=== PATIENT | female | born 1990 | race Caucasian/White ===

== ENCOUNTER 2016-03-20 16:19 | Emergency (ER) | payer MEDICAID, OTHER ==
[~2016-03-20] VITALS: Ht 157.5 cm; Wt 54.4 kg
[~2016-03-20 16:19] MED LIST: ATIVAN1 MG ORAL; RANITIDINE HCL150 MG ORAL
[2016-03-20] MEDS ORDERED: LEXAPRO10 MG ORAL (16:34)
[2016-03-20] MEDS ORDERED: Famotidine 20 MG/ 2ML VIAL IVP ONE (16:45)
[2016-03-20] MEDS ORDERED: LORazepam Inj 2mg/ml 1ml IV ONE (17:15)
[2016-03-20 17:30] LABS: BASOPHILS % (AUTO) 1.6 % (0.0-2.0); EOSINOPHILS % (AUTO) 0.4 % (0.0-3.0); LYMPHOCYTES % (AUTO) 6.1 % (20.0-45.0); MEAN CORPUSCULAR HEMOGLOBIN 29.3 PG (27.0-31.0); MEAN CORPUSCULAR HGB CONC 33.4 G/DL (32.0-36.0); MEAN CORPUSCULAR VOLUME 88 FL (80-99); MEAN PLATELET VOLUME 8.1 FL (6.5-10.1); NEUTROPHILS % (AUTO) 83.9 % (45.0-75.0); PLATELET COUNT 164 K/UL (150-450); RED BLOOD COUNT 4.83 M/UL (4.20-5.40); RED CELL DISTRIBUTION WIDTH 11.1 % (11.6-14.8); WHITE BLOOD COUNT 6.8 K/UL (4.8-10.8)
[2016-03-20 17:38] LABS: APPEARANCE,URINE SLIGHTLY CLOUDY; KETONES,URINE 2+ (NEGATIVE); PROTEIN,URINE 1+ (NEGATIVE)
[2016-03-20 17:39] LABS: LEUKOCYTE ESTERASE ,URINE TRACE (NEGATIVE); NITRITE,URINE NEGATIVE (NEGATIVE); UROBILINOGEN,URINE NORMAL MG/DL (0.0-1.0)
[2016-03-20 17:43] LABS: ALANINE AMINOTRANSFERASE 17 U/L (3-33); ANION GAP 18 (5-15); ASPARTATE AMINO TRANSFERASE 19 U/L (5-40); CALCIUM 9.3 mg/dL (8.6-10.2); CARBON DIOXIDE 23 mEQ/L (20-30); CHLORIDE 97 mEQ/L (98-107); CREATININE 0.7 mg/dL (0.5-0.9); GLOMERULAR FILTRATION RATE > 60 mL/min (>60); HEMOLYSIS 6; LIPASE 37 U/L (< 60); POTASSIUM 3.6 mEQ/L (3.4-4.9); SODIUM 138 mEQ/L (135-145); TOTAL PROTEIN 6.9 g/dL (6.6-8.7)
[2016-03-20 17:55] LABS: SQUAMOUS EPITHELIAL CELL,UR MANY /LPF (NONE/OCC)
[2016-03-20 17:56] LABS: BACTERIA,URINE MODERATE /HPF
[2016-03-20] MEDS ORDERED: ZOFRAN4 M3 ORAL (18:10)
[2016-03-20] MEDS ORDERED: TYLENOL EXTRA500 MG ORAL (18:10)
[2016-03-20] MEDS ORDERED: ATIVAN0.5 MG ORAL (18:10)
[2016-03-20 18:23] VITALS: BP 91/58
--- NOTE | 2016-03-21 09:48 | Emergency Room Report ---
History of Present Illness General Chief Complaint: Abdominal Pain Source: Patient Present Illness [facility] The patient is a 25 yo F with a Hx of anxiety disorder presenting for 3 days of headache, N, V, F, chills, and lower abd pain. The patient was seen by her primary care physician at the beginning of the symptoms and was diagnosed with urinary tract infection and placed on macrobid.The patient has also been prescribed tamiflu for flu-like symptoms. Abdominal pain is described as a mid lower abdomen 7/10 dull ache and does not radiate.The patient states that symptoms have not improved since beginning these medications. The patient denies any sick contacts or recent travel. Allergies: Coded Allergies: No Known Allergies (Unverified , 05/02/15) Patient History Past Medical History: see triage record Pertinent Family History: none Last Menstrual Period: 03/08/2016 Reviewed Nursing Documentation: PMH: Agreed, PSxH: Agreed Nursing Documentation-PM Past Medical History: No History, Except For History Of Psychiatric Problem: Yes - Anxiety Review of Systems All Other Systems: negative except mentioned in HPI Physical Exam Vital Signs Date Time Temp Pulse Resp B/P Pulse Ox O2 Delivery O2 Flow Rate FiO2 03/20/16 16:28 99.0 120 18 120/75 99 Room Air Sp02 EP Interpretation: reviewed, normal General Appearance: alert, GCS 15, non-toxic, mild distress Head: normocephalic, atraumatic Eyes: bilateral eye PERRL, bilateral eye normal inspection ENT: hearing grossly normal, normal pharynx, no angioedema, normal voice, TMs + canals normal, uvula midline Neck: full range of motion, supple, no bony tend, supple/symm/no masses Respiratory: chest non-tender, lungs clear, normal breath sounds, no respiratory distress, no accessory muscle use, no wheezing, speaking full sentences Cardiovascular #1: regular rate, rhythm, no edema Gastrointestinal: normal bowel sounds, soft, no mass, no guarding, tenderness - suprapubic and epigastric Genitourinary: normal inspection, no CVA tenderness Musculoskeletal: back normal, gait/station normal, normal range of motion, non- tender Neurologic: alert, oriented x3, responsive, motor strength/tone normal, sensory intact, speech normal Psychiatric: judgement/insight normal, memory normal, mood/affect normal, no suicidal/homicidal ideation Skin: normal color, no rash, warm/dry, well hydrated Lymphatic: no adenopathy Medical Decision Making PA Attestation Dr. albrecht is my supervising physician. Patient management was discussed with my supervising physician Diagnostic Impression: Primary Impression: Gastroenteritis Additional Impressions: Anxiety Influenza ER Course The patient is a 25 yo F with a Hx of anxiety disorder presenting for 3 days of headache, N, V, F, chills, and lower abd pain Differential diagnosis: Influenza, gastroenteritis, anxiety disorder, appendicitis, , urinary tract infection, among others Physical exam: Afebrile but tachycardic. Mild distress HEENT exam is unremarkable. No tonsillar edema, erythema, or exudate. No cervical lymphadenopathy. Lungs are clear to auscultation bilaterally. Abdomen is soft. No guarding. There is tenderness to palpation over suprapubic and epigastric regions only. No right lower quadrant tenderness. No CVA tenderness Skin warm and dry Otherwise exam unremarkable Labs: CBC unremarkable. No leukocytosis. CMP is unremarkable. Urinalysis shows a moderate amount of bacteria with elevated leukocyte esterase. No nitrates. Negative The patient is given IV fluids, Pepcid, Zofran, and Ativan and is feeling much better. The patient will continue taking medications for influenza and urinary tract infection which her primary care physician prescribed for her. The patient will be discharged with a prescription for Ativan, Zofran, and Tylenol. Patient will follow up with primary care physician and psychiatrist. ER precautions are given Laboratory Tests Test 03/20/16 17:00 03/20/16 17:11 Urine Color Yellow Urine Appearance Slightly cloudy Urine pH 9.0 (4.5-8.0) Urine Specific [place] 1.005 (1.005-1.035) Urine Protein 1+ (NEGATIVE) H Urine Glucose (UA) Negative (NEGATIVE) Urine Ketones 2+ (NEGATIVE) H Urine Occult Blood Negative (NEGATIVE) Urine Nitrite Negative (NEGATIVE) Urine Bilirubin Negative (NEGATIVE) Urine Urobilinogen Normal MG/DL (0.0-1.0) Urine Leukocyte Esterase Trace (NEGATIVE) H Urine RBC 2-4 /HPF (0 - 2) H Urine WBC 2-4 /HPF (0 - 2) Urine Squamous Epithelial Cells Many /LPF (NONE/OCC) H Urine Bacteria Moderate /HPF (NONE) H Urine HCG, Qualitative Negative White Blood Count 6.8 K/UL (4.8-10.8) Red Blood Count 4.83 M/UL (4.20-5.40) Hemoglobin 14.2 G/DL (12.0-16.0) Hematocrit 42.5 % (37.0-47.0) Mean Corpuscular Volume 88 FL (80-99) Mean Corpuscular Hemoglobin 29.3 PG (27.0-31.0) Mean Corpuscular Hemoglobin Concent 33.4 G/DL (32.0-36.0) Red Cell Distribution Width 11.1 % (11.6-14.8) L Platelet Count 164 K/UL (150-450) Mean Platelet Volume 8.1 FL (6.5-10.1) Neutrophils (%) (Auto) 83.9 % (45.0-75.0) H Lymphocytes (%) (Auto) 6.1 % (20.0-45.0) L Monocytes (%) (Auto) 8.0 % (1.0-10.0) Eosinophils (%) (Auto) 0.4 % (0.0-3.0) Basophils (%) (Auto) 1.6 % (0.0-2.0) Sodium Level 138 mEQ/L (135-145) Potassium Level 3.6 mEQ/L (3.4-4.9) Chloride Level 97 mEQ/L (98-107) L Carbon Dioxide Level 23 mEQ/L (20-30) Anion Gap 18 (5-15) H Blood Urea Nitrogen 7 mg/dL (7-23) Creatinine 0.7 mg/dL (0.5-0.9) Estimate Glomerular Filtration Rate > 60 mL/min (>60) Glucose Level 112 mg/dL (74-106) H Calcium Level 9.3 mg/dL (8.6-10.2) Total Bilirubin 0.8 mg/dL (0.0-1.2) Aspartate Amino Transferase (AST) 19 U/L (5-40) Alanine Aminotransferase (ALT) 17 U/L (3-33) Alkaline Phosphatase 29 U/L (35-104) L Total Protein 6.9 g/dL (6.6-8.7) Albumin 4.6 g/dL (3.5-5.2) Globulin 2.3 g/dL Albumin/Globulin Ratio 2.0 (1.0-2.7) Lipase 37 U/L (< 60) Microbiology Date/Time Source Procedure Growth Status 03/20/16 18:40 Nasopharynx Influenza Types A,B Antigen ([facility]MER) - Final Complete Lab Results Impression CBC unremarkable. No leukocytosis. CMP is unremarkable. Urinalysis shows a moderate amount of bacteria with elevated leukocyte esterase. No nitrates. Negative Last Vital Signs Date Time Temp Pulse Resp B/P Pulse Ox O2 Delivery O2 Flow Rate FiO2 03/20/16 18:23 98.3 102 14 91/58 98 Room Air Status: improved Disposition: HOME, SELF-CARE Condition: Improved Scripts Lorazepam* (ATIVAN*) 0.5 Mg Tablet 0.5 MG ORAL THREE TIMES A DAY, #15 TAB Prov: KEEGAN WELCH P.A. 03/20/16 Ondansetron* (ZOFRAN*) 4 Mg Tablet 4 MG ORAL Q6H Y for Nausea & Vomiting, #20 TAB Prov: VIDALANKEEGAN P.A. 03/20/16 Acetaminophen* (TYLENOL EXTRA STRENGTH*) 500 Mg Tablet 500 MG ORAL Q8H Y for Prn Headache/Temp > 101, #30 TAB 0 Refills Prov: TERBENANKEEGAN P.A. 03/20/16 Patient Instructions: Viral Gastroenteritis, Adult Additional Instructions: I discussed my findings with the patient. All questions and concerns have been answered. Treatment and medication compliance have been addressed. I advised the patient that they need to follow up with PMD in 3-5 days. Return to ED if symptoms worsen, new symptoms arise, or if needed for any reason. Patient verbalized understanding of discharge instructions. KEEGAN WELCH Mar 21, 2016 09:48
[2016-03-24] MEDS ORDERED: CIPROFLOXACIN250 MG PO (21:30)
== END 2016-03-20 18:40 | disposition home or self-care (01) ==
LOC: EMR 17:25
DX: K52.9 Noninfective gastroenteritis and colitis, unspecified (principal); F41.9 Anxiety disorder, unspecified; J11.1 Influenza due to unidentified influenza virus with other respiratory manifestations
CPT/HCPCS: 36415; 80053; 81003; 81025; 83690; 85025; 86710; 87086; 87181; 96374; 96375; 99284; J2405; S0028

== ENCOUNTER 2016-12-04 09:07 | Emergency (ER) | payer OTHER ==
[~2016-12-04] VITALS: Ht 154.9 cm; Wt 54.4 kg
[~2016-12-04 09:07] MED LIST changes: +ATIVAN0.5 MG ORAL; +CIPROFLOXACIN250 MG PO; +LEXAPRO10 MG ORAL; +TYLENOL EXTRA500 MG ORAL; +ZOFRAN4 M3 ORAL
[2016-12-04] MEDS ORDERED: Tubing IV Cassette IV ONE (09:35)
[2016-12-04] MEDS ORDERED: PEPCID20 MG ORAL (09:44)
[2016-12-04] MEDS ORDERED: Lidocaine 2% Visc 15ml soln ORAL ONE (09:45)
[2016-12-04] MEDS ORDERED: Dicyclomine HCl 10mg/5ml oral soln ORAL ONE (09:45)
[2016-12-04] MEDS ORDERED: Mylanta II UD 30ml ORAL ONE (09:45)
--- NOTE | 2016-12-04 09:45 | Emergency Room Report ---
History of Present Illness General Chief Complaint: Dizziness Source: Patient Present Illness HPI 26-year-old female history of depression p/w dizziness nausea vomiting epigastric pain Patient stated that she was taking escitalopram for many months, stopped 2 weeks ago and she states that she felt like she did not need it, took it on an empty stomach last night, this morning woke up with nausea, dizziness, and epigastric pain. Patient states pain started gradually, localized to the epigastric area, non radiating, earning in nature, intermittent. No relieving or exacerbating factors. Patient reports nausea but no vomiting. Lightheadedness, no room spinning Denies fever, chills. Last menstrual period was November 11 Allergies: Coded Allergies: No Known Allergies (Unverified , 05/02/15) Patient History Past Medical History: see triage record Past Surgical History: none Pertinent Family History: none Last Menstrual Period: a month ago Now: No Reviewed Nursing Documentation: PMH: Agreed, PSxH: Agreed Nursing Documentation-PMH History Of Psychiatric Problem: Yes - depression Review of Systems All Other Systems: negative except mentioned in HPI Physical Exam Vital Signs Date Time Temp Pulse Resp B/P (MAP) Pulse Ox O2 Delivery O2 Flow Rate FiO2 12/04/16 09:12 97.9 116 22 100/69 99 Room Air Sp02 EP Interpretation: reviewed, normal General Appearance: normal inspection, well appearing, no apparent distress, alert, GCS 15, non-toxic Head: normocephalic, atraumatic Eyes: bilateral eye normal inspection, bilateral eye PERRL, bilateral eye EOMI ENT: normal ENT inspection, normal pharynx, normal voice, moist mucus membranes Neck: normal inspection, full range of motion, supple Respiratory: normal inspection, lungs clear, normal breath sounds, no respiratory distress, no retraction, no wheezing, speaking full sentences, chest symmetrical Cardiovascular #1: normal inspection, regular rate, rhythm, no edema, normal capillary refill Cardiovascular #2: 2+ radial (R), 2+ radial (L) Gastrointestinal: normal inspection, non tender, soft, non-distended, no guarding Musculoskeletal: normal inspection, back normal, normal range of motion, non- tender Neurologic: normal inspection, alert, oriented x3, responsive, motor strength/ tone normal, sensory intact, normal gait, speech normal Psychiatric: normal inspection, judgement/insight normal, memory normal, mood/ affect normal, no suicidal/homicidal ideation Skin: normal inspection, normal color, no rash, warm/dry, well hydrated, normal turgor Medical Decision Making Diagnostic Impression: Primary Impression: Dizziness Additional Impression: Abdominal pain ER Course 26 yo female with nausea vomiting epigastric pain Differential Diagnosis: Gastritis, gastroenteritis, UTI/pyelo At this time abdomen is soft nontender Plan: Basic labs, ua Pepcid, maalox, pain control, IVF ER course: Patient has remained stable during ED stay. Pain improved, dizziness improved Repeat abdominal exam is nontender. Tolerating PO Disposition: Patient is to be discharged to home. Prescriptions given are pepcid Patient is instructed to follow up with their primary care doctor within 5 days. Strict return precautions discussed with patient such as fever, chills, worsening/severe abdominal pain, nausea, vomiting, black or bloody stools, which may indicate severe illness. Patient verbalizes understanding and agrees with plan. Please note that this Emergency Department Report was dictated using [employer] unit director technology software, occasionally this can lead to erroneous entry secondary to interpretation by the dictation equipment EKG Diagnostic Results EP Interpretation: Yes Rate: normal Rhythm: NSR ST Segments: No acute changes ASA given to patient: no Laboratory Tests Test 12/04/16 09:35 12/04/16 09:50 White Blood Count 7.8 K/UL (4.8-10.8) Red Blood Count 4.53 M/UL (4.20-5.40) Hemoglobin 14.4 G/DL (12.0-16.0) Hematocrit 40.7 % (37.0-47.0) Mean Corpuscular Volume 90 FL (80-99) Mean Corpuscular Hemoglobin 31.7 PG (27.0-31.0) H Mean Corpuscular Hemoglobin Concent 35.4 G/DL (32.0-36.0) Red Cell Distribution Width 10.5 % (11.6-14.8) L Platelet Count 196 K/UL (150-450) Mean Platelet Volume 8.5 FL (6.5-10.1) Neutrophils (%) (Auto) 64.8 % (45.0-75.0) Lymphocytes (%) (Auto) 23.8 % (20.0-45.0) Monocytes (%) (Auto) 7.2 % (1.0-10.0) Eosinophils (%) (Auto) 3.1 % (0.0-3.0) H Basophils (%) (Auto) 1.1 % (0.0-2.0) Sodium Level 140 MMOL/L (136-145) Potassium Level 3.7 MMOL/L (3.5-5.1) Chloride Level 104 MMOL/L (98-107) Carbon Dioxide Level 26 MMOL/L (21-32) Anion Gap 10 mmol/L (5-15) Blood Urea Nitrogen 12 mg/dL (7-18) Creatinine 0.7 MG/DL (0.55-1.30) Estimate Glomerular Filtration Rate > 60 mL/min (>60) Glucose Level 95 MG/DL (74-106) Calcium Level 8.6 MG/DL (8.5-10.1) Total Bilirubin 0.4 MG/DL (0.2-1.0) Aspartate Amino Transferase (AST) 18 U/L (15-37) Alanine Aminotransferase (ALT) 30 U/L (12-78) Alkaline Phosphatase 25 U/L (46-116) L Total Protein 7.1 G/DL (6.4-8.2) Albumin 3.9 G/DL (3.4-5.0) Globulin 3.2 g/dL Albumin/Globulin Ratio 1.2 (1.0-2.7) Lipase 240 U/L (73-393) Urine Color Yellow Urine Appearance Clear Urine pH 8 (4.5-8.0) Urine Specific [place] 1.010 (1.005-1.035) Urine Protein Negative (NEGATIVE) Urine Glucose (UA) Negative (NEGATIVE) Urine Ketones Negative (NEGATIVE) Urine Occult Blood Negative (NEGATIVE) Urine Nitrite Negative (NEGATIVE) Urine Bilirubin Negative (NEGATIVE) Urine Urobilinogen Normal MG/DL (0.0-1.0) Urine Leukocyte Esterase 2+ (NEGATIVE) H Urine RBC 0-2 /HPF (0 - 2) Urine WBC 2-4 /HPF (0 - 2) Urine Squamous Epithelial Cells Moderate /LPF (NONE/OCC) H Urine Bacteria Few /HPF (NONE) Urine HCG, Qualitative Negative Last Vital Signs Date Time Temp Pulse Resp B/P (MAP) Pulse Ox O2 Delivery O2 Flow Rate FiO2 12/04/16 09:12 97.9 116 22 100/69 99 Room Air Disposition: HOME, SELF-CARE Condition: Improved Scripts Famotidine (PEPCID) 20 Mg Tablet 20 MG ORAL BEDTIME for 7 Days, #7 TAB 0 Refills Prov: Robbi Carbajal M.D. 12/04/16 Referrals: NOT CHOSEN [facility],REFERRING (PCP) Patient Instructions: Abdominal Pain, Adult, Dizziness Robbi Carbajal M.D. Dec 04, 2016 09:45
[2016-12-04 10:00] VITALS: BP 95/66
[2016-12-04 10:01] LABS: BASOPHILS % (AUTO) 1.1 % (0.0-2.0); EOSINOPHILS % (AUTO) 3.1 % (0.0-3.0); LYMPHOCYTES % (AUTO) 23.8 % (20.0-45.0); MEAN CORPUSCULAR HEMOGLOBIN 31.7 PG (27.0-31.0); MEAN CORPUSCULAR HGB CONC 35.4 G/DL (32.0-36.0); MEAN CORPUSCULAR VOLUME 90 FL (80-99); MEAN PLATELET VOLUME 8.5 FL (6.5-10.1); MONOCYTES % (AUTO) 7.2 % (1.0-10.0); NEUTROPHILS % (AUTO) 64.8 % (45.0-75.0); PLATELET COUNT 196 K/UL (150-450); RED BLOOD COUNT 4.53 M/UL (4.20-5.40); RED CELL DISTRIBUTION WIDTH 10.5 % (11.6-14.8); WHITE BLOOD COUNT 7.8 K/UL (4.8-10.8)
[2016-12-04 10:12] LABS: APPEARANCE,URINE CLEAR; KETONES,URINE NEGATIVE (NEGATIVE); LEUKOCYTE ESTERASE ,URINE 2+ (NEGATIVE); NITRITE,URINE NEGATIVE (NEGATIVE); PH,URINE 8 (4.5-8.0); PROTEIN,URINE NEGATIVE (NEGATIVE); UROBILINOGEN,URINE NORMAL MG/DL (0.0-1.0)
[2016-12-04 10:13] LABS: ALANINE AMINOTRANSFERASE 30 U/L (12-78); ALBUMIN/GLOBULIN RATIO 1.2 (1.0-2.7); ANION GAP 10 mmol/L (5-15); ASPARTATE AMINO TRANSFERASE 18 U/L (15-37); CALCIUM 8.6 MG/DL (8.5-10.1); CARBON DIOXIDE 26 MMOL/L (21-32); CHLORIDE 104 MMOL/L (98-107); CREATININE 0.7 MG/DL (0.55-1.30); GLOMERULAR FILTRATION RATE > 60 mL/min (>60); LIPASE 240 U/L (73-393); POTASSIUM 3.7 MMOL/L (3.5-5.1); SODIUM 140 MMOL/L (136-145); TOTAL PROTEIN 7.1 G/DL (6.4-8.2)
[2016-12-04 10:26] LABS: BACTERIA,URINE FEW /HPF; RBC,URINE 0-2 /HPF (0 - 2); SQUAMOUS EPITHELIAL CELL,UR MODERATE /LPF (NONE/OCC)
[2016-12-04 11:06] VITALS: BP 93/57
--- NOTE | 2016-12-06 15:24 | Cardiology Report ---
APPROVED REPORT EKG Measurement Heart [id number] Sinus rhythm with premature atrial complexes Otherwise normal ECG
== END 2016-12-04 11:12 | disposition home or self-care (01) ==
LOC: EMR 09:31
DX: R42 Dizziness and giddiness (principal); R11.2 Nausea with vomiting, unspecified; F32.9 Major depressive disorder, single episode, unspecified; R10.13 Epigastric pain
CPT/HCPCS: 36415; 80053; 81003; 81025; 83690; 85025; 93005; 96361; 96374; 96375; 99284; J2405; S0028

== ENCOUNTER 2017-06-01 13:34 | Emergency (ER) | payer MEDICAID, OTHER ==
[~2017-06-01] VITALS: Ht 154.9 cm; Wt 52.2 kg
[~2017-06-01 13:34] MED LIST changes: +PEPCID20 MG ORAL
[2017-06-01] MEDS ORDERED: Morphine Sulfate 4mg/ml Inj IVP ONE (14:15)
[2017-06-01] MEDS ORDERED: LORazepam Inj 2mg/ml 1ml IV ONE (14:15)
[2017-06-01 14:21] VITALS: BP 102/75
[2017-06-01 14:27] LABS: HEMATOCRIT 45.6 % (37.0-47.0); HEMOGLOBIN 15.3 G/DL (12.0-16.0); MEAN CORPUSCULAR VOLUME 88 FL (80-99); PLATELET COUNT 207 K/UL (150-450); RED BLOOD COUNT 5.17 M/UL (4.20-5.40); RED CELL DISTRIBUTION WIDTH 10.7 % (11.6-14.8); WHITE BLOOD COUNT 9.3 K/UL (4.8-10.8)
[2017-06-01 14:39] LABS: APPEARANCE,URINE CLEAR; BILIRUBIN, URINE NEGATIVE (NEGATIVE); COLOR,URINE PALE YELLOW; GLUCOSE, URINE (UA) NEGATIVE (NEGATIVE); KETONES,URINE 3+ (NEGATIVE); LEUKOCYTE ESTERASE ,URINE NEGATIVE (NEGATIVE); NITRITE,URINE NEGATIVE (NEGATIVE); PH,URINE 6.5 (4.5-8.0); PROTEIN,URINE NEGATIVE (NEGATIVE); UROBILINOGEN,URINE NORMAL MG/DL (0.0-1.0)
[2017-06-01 14:49] LABS: ANION GAP 9 mmol/L (5-15); BLOOD UREA NITROGEN 11 mg/dL (7-18); CARBON DIOXIDE 25 MMOL/L (21-32); CHLORIDE 103 MMOL/L (98-107); CREATININE 0.7 MG/DL (0.55-1.30); SODIUM 137 MMOL/L (136-145)
[2017-06-01 14:59] LABS: ALANINE AMINOTRANSFERASE 11 U/L (12-78); ALBUMIN 4.1 G/DL (3.4-5.0); ALBUMIN/GLOBULIN RATIO 1.2 (1.0-2.7); ALKALINE PHOSPHATASE 37 U/L (46-116); ASPARTATE AMINO TRANSFERASE 14 U/L (15-37); BILIRUBIN,TOTAL 1.1 MG/DL (0.2-1.0)
[2017-06-01 15:00] LABS: BILIRUBIN,DIRECT 0.2 MG/DL (0.0-0.3)
[2017-06-01] MEDS ORDERED: ZOFRAN ODT4 MG ORAL ×2 (15:15→15:49)
[2017-06-01] MEDS ORDERED: RANITIDINE HCL150 MG ORAL ×2 (15:15→15:49)
[2017-06-01] MEDS ORDERED: ATIVAN0.5 MG ORAL ×2 (15:15→15:49)
[2017-06-01] MEDS ORDERED: DICYCLOMINE HCL10 MG PO ×2 (15:33→15:49)
[2017-06-01 15:57] VITALS: BP 100/77
--- NOTE | 2017-06-01 15:59 | Emergency Room Report ---
History of Present Illness General Chief Complaint: General Complaint Source: Patient Present Illness HPI 26-year-old female presents ED for evaluation. Patient presenting complaining of abdominal pain with nausea vomiting and dizziness. Started 3 days ago. History of gastritis. States she's taking her prescribed medications without relief. Pain is sharp, epigastric, 8 out of 10. Feels dizzy. Denies chest pain or shortness of breath. Also feeling very anxious. History of anxiety and takes Ativan at home. Denies alcohol or drug use. No other aggravating relieving factors. Denies any other associated symptoms Allergies: Coded Allergies: No Known Allergies (Unverified , 05/02/15) Patient History Past Medical History: GERD, psych hx Past Surgical History: none Pertinent Family History: none Social History: Denies: smoking, alcohol use, drug use Now: No Immunizations: UTD Reviewed Nursing Documentation: PMH: Agreed; PSxH: Agreed Nursing Documentation-PMH Past Medical History: No Stated History Review of Systems All Other Systems: negative except mentioned in HPI Physical Exam Vital Signs Date Time Temp Pulse Resp B/P (MAP) Pulse Ox O2 Delivery O2 Flow Rate FiO2 06/01/17 13:45 98.9 95 20 102/75 100 Room Air 99.0 Sp02 EP Interpretation: reviewed, normal General Appearance: no apparent distress, alert, GCS 15, non-toxic Head: normocephalic, atraumatic Eyes: bilateral eye normal inspection, bilateral eye PERRL ENT: hearing grossly normal, normal pharynx, no angioedema, normal voice Neck: full range of motion, supple/symm/no masses Respiratory: chest non-tender, lungs clear, normal breath sounds, speaking full sentences Cardiovascular #1: regular rate, rhythm, no edema Cardiovascular #2: 2+ carotid (R), 2+ carotid (L), 2+ radial (R), 2+ radial (L) , 2+ dorsalis pedis (R), 2+ dorsalis pedis (L) Gastrointestinal: normal bowel sounds, soft, non-distended, no guarding, no rebound, tenderness - epigastric Rectal: deferred Genitourinary: normal inspection, no CVA tenderness Musculoskeletal: back normal, gait/station normal, normal range of motion, non- tender Neurologic: alert, oriented x3, responsive, motor strength/tone normal, sensory intact, speech normal Psychiatric: judgement/insight normal, memory normal, no suicidal/homicidal ideation, anxious Reflexes: 3+ bicep (R), 3+ bicep (L), 3+ tricep (R), 3+ tricep (L), 3+ knee (R) , 3+ knee (L) Skin: normal color, no rash, warm/dry, well hydrated Lymphatic: no adenopathy Medical Decision Making Diagnostic Impression: Primary Impression: Gastritis Qualified Codes: K29.00 - Acute gastritis without bleeding Additional Impression: Anxiety ER Course Hospital Course 26-year-old F presents to ED with epigastric pain with N/V. differential diagnosis: gastritis, SBO, cholecystits Clinical course Patient placed on stretcher. On director of cardiac rehabilitation. After initial history and physical I ordered labs, IV fluids, Zofran and pepcid Labs - no leukocytosis, no electrolyte abnormalities, LFTs normal, UA unremarkable ABD US - no gallstones, negative raman Upon reassessment, patient states pain has improved. Discussed findings with patient. Patient has prior history of gastritis and has been prescribed medications in the past. Patient states she was supposed to go get H pylori test done as an outpatient sometime back but never went. I feel this is a highly complex case requiring extensive working including EKG/ Rhythm strip, Xray/CT/US, Blood/urine lab work, repeat exams while in ED, and administration of strong opiates/narcotics for pain control, admission to hospital or close patient follow up. Diagnosis - gastritis, anxiety Stable and discharged to home with prescriptions for Zantac, zofran, bentyl, ativan. Followup with PMD. Return to ED if symptoms recur or worsen Labs Test 06/01/17 14:05 06/01/17 14:30 White Blood Count 9.3 K/UL (4.8-10.8) Red Blood Count 5.17 M/UL (4.20-5.40) Hemoglobin 15.3 G/DL (12.0-16.0) Hematocrit 45.6 % (37.0-47.0) Mean Corpuscular Volume 88 FL (80-99) Mean Corpuscular Hemoglobin 29.7 PG (27.0-31.0) Mean Corpuscular Hemoglobin Concent 33.6 G/DL (32.0-36.0) Red Cell Distribution Width 10.7 % (11.6-14.8) Platelet Count 207 K/UL (150-450) Mean Platelet Volume 9.1 FL (6.5-10.1) Neutrophils (%) (Auto) % (45.0-75.0) Lymphocytes (%) (Auto) % (20.0-45.0) Monocytes (%) (Auto) % (1.0-10.0) Eosinophils (%) (Auto) % (0.0-3.0) Basophils (%) (Auto) % (0.0-2.0) Differential Total Cells Counted 100 Neutrophils % (Manual) 85 % (45-75) Lymphocytes % (Manual) 5 % (20-45) Monocytes % (Manual) 5 % (1-10) Eosinophils % (Manual) 0 % (0-3) Basophils % (Manual) 0 % (0-2) Band Neutrophils 5 % (0-8) Platelet Estimate Adequate Platelet Morphology Normal Red Blood Cell Morphology Normal Sodium Level 137 MMOL/L (136-145) Potassium Level 4.0 MMOL/L (3.5-5.1) Chloride Level 103 MMOL/L (98-107) Carbon Dioxide Level 25 MMOL/L (21-32) Anion Gap 9 mmol/L (5-15) Blood Urea Nitrogen 11 mg/dL (7-18) Creatinine 0.7 MG/DL (0.55-1.30) Estimat Glomerular Filtration Rate > 60 mL/min (>60) Glucose Level 102 MG/DL (74-106) Calcium Level 9.0 MG/DL (8.5-10.1) Total Bilirubin 1.1 MG/DL (0.2-1.0) Direct Bilirubin 0.2 MG/DL (0.0-0.3) Aspartate Amino Transf (AST/SGOT) 14 U/L (15-37) Alanine Aminotransferase (ALT/SGPT) 11 U/L (12-78) Alkaline Phosphatase 37 U/L (46-116) Total Protein 7.4 G/DL (6.4-8.2) Albumin 4.1 G/DL (3.4-5.0) Globulin 3.3 g/dL Albumin/Globulin Ratio 1.2 (1.0-2.7) Lipase 187 U/L (73-393) Urine Color Pale yellow Urine Appearance Clear Urine pH 6.5 (4.5-8.0) Urine Specific [place] 1.005 (1.005-1.035) Urine Protein Negative (NEGATIVE) Urine Glucose (UA) Negative (NEGATIVE) Urine Ketones 3+ (NEGATIVE) Urine Occult Blood Negative (NEGATIVE) Urine Nitrite Negative (NEGATIVE) Urine Bilirubin Negative (NEGATIVE) Urine Urobilinogen Normal MG/DL (0.0-1.0) Urine Leukocyte Esterase Negative (NEGATIVE) Urine HCG, Qualitative Negative (NEGATIVE) CT/MRI/US Diagnostic Results CT/MRI/US Diagnostic Results : Imaging Test Ordered: Abd US Impression negative murphys. dilated loops of bowel. no gallstones Last Vital Signs Date Time Temp Pulse Resp B/P (MAP) Pulse Ox O2 Delivery O2 Flow Rate FiO2 06/01/17 14:46 98.0 06/01/17 14:21 20 102/75 100 Room Air 06/01/17 13:45 95 Status: improved Disposition: HOME, SELF-CARE Condition: Improved Scripts Dicyclomine Hcl* (DICYCLOMINE HCL*) 10 Mg Capsule 10 MG PO QID, #20 CAP Prov: Reddy Nicholas MD 06/01/17 Lorazepam* (ATIVAN*) 0.5 Mg Tablet 0.5 MG ORAL THREE TIMES A DAY, #20 TAB Prov: Reddy Nicholas MD 06/01/17 Ondansetron Odt* (ZOFRAN ODT*) 4 Mg Tab.rapdis 4 MG ORAL Q6H PRN for Nausea & Vomiting, #30 TAB 0 Refills Prov: Reddy Nicholas MD 06/01/17 Ranitidine Hcl* (ZANTAC*) 150 Mg Tablet 150 MG ORAL TWICE A DAY, #30 TAB Prov: Reddy Nicholas MD 06/01/17 [facility],REFERRING (PCP) Patient Instructions: Gastritis, Adult, [id number] Reddy Nicholas MD Jun 01, 2017 15:59
--- NOTE | 2017-06-01 18:43 | Diagnostic Imaging Report ---
Indication: Trauma pain Technique: US ABD Complete Comparison: None Findings: Image pancreatic head is grossly unremarkable. Body and tail are not seen. Liver is normal in size and contour. Hepatic echogenicity is homogeneous. No focal hepatic mass lesion is appreciated sonographically. No cholelithiasis or gallbladder sludge is seen. Gallbladder wall normal in thickness. No pericholecystic fluid. Sonographic Post sign reported as negative. Common bile duct measures 4.7 mm in diameter. Kidneys are symmetric in size and demonstrate normal parenchymal thickness and echogenicity. There is no hydronephrosis or sonographically appreciable renal stone bilaterally. There is normal color flow to the kidneys. Spleen is unremarkable in size and appearance. There is no ascites. Imaged portions of the aorta normal in size. IMPRESSION: No definite sonographic evidence of acute intraabdominal pathology. No evidence of cholelithiasis/gallbladder sludge or sonographic evidence to suggest acute cholecystitis.
== END 2017-06-01 15:58 | disposition home or self-care (01) ==
LOC: EMR 14:19
DX: K29.70 Gastritis, unspecified, without bleeding (principal); F41.9 Anxiety disorder, unspecified
CPT/HCPCS: 36415; 76700; 80053; 81003; 81025; 82248; 83690; 85007; 85025; 96374; 96375; 99284; J2270; J2405; S0028